=== PATIENT | female | born 1970 | race Caucasian/White ===

== ENCOUNTER 2022-12-26 09:18 | Outpatient (REF) | payer OTHER, SELFPAY ==
--- NOTE | 2022-12-26 10:24 | MHC.AU.HA1 ---
Hearing Aid Evaluation Date of Visit: 12/26/22 Historical Information: Description of Hearing: Asymmetric moderate sloping to profound sensorineural hearing loss with 100% speech understanding for the right ear and 60% for the left ear. Current personal amplification information, if applicable: Oticon left Exceed Power and right Nera BTE with standard half shell molds. Summary: Received Oticon aids through [facility] more than 5 years ago. Stopped using the aids shortly after fitting due to ear pain, left greater than right. Dr. Gracia thinks because of the left ear surgery and shape of jaw with movement. Patient's speech understanding and quality of her own speech has decreased more, particularly after having COVID 3 times. Needs now hearing aids to better facilitate communication. Medical clearance in chart. Hearing Aid Prescription: Based on the individual?s shared listening needs, communication environments, dexterity, desire for connectivity, and personal preferences, the following prescription for amplification has been made: Right ear: Make, Model, Color: Phonak Audeo L 70-R Black Battery Size: Rechargeable Collections Manager/Slim Tube: #2 UP Type of Earmold/Dome/CShell/SlimTip: Phonak Canal Lock C-Shell Left ear:Left ear prescription to be same as Right Hearing Aid above: Make, Model, Color: Phonak Audeo L 70-R Black Battery Size: Rechargeable Collections Manager/Slim Tube: #2 UP Type of Earmold/Dome/CShell/SlimTip: Phonak Canal Lock C-Shell Plan of Care: Patient wishes to purchase hearing aids as prescribed Action Taken/Action Needed:Earmold Impressions Taken, Hearing Instrument Fitting to be scheduled when materials arrive Primary Diagnosis: H90.3 Bilateral Sensorineural Hearing Loss Signature:Provider: Andrew Fonseca, [facility]
== END 2022-12-26 09:19 | disposition home or self-care (01) ==
LOC: HO.HAP 09:18
PROVIDERS: Visit Provider Internal Medicine
DX: Z46.1 Encounter for fitting and adjustment of hearing aid (principal); H90.3 Sensorineural hearing loss, bilateral
CPT/HCPCS: 92591; V5275

== ENCOUNTER 2023-01-16 13:01 | Outpatient (REF) | payer OTHER, SELFPAY ==
--- NOTE | 2023-01-16 14:12 | MHC.AU.HA2 ---
Hearing Instrument Fitting- Adult- Binaural Date of Visit: 01/16/23 Hearing Instruments Dispensed: Right Ear: Wicho, Model, Color, Serial Number: Sarthak Linareso L 70-R Black Serial #[id number] Feather Duster Winder Repair Warranty: 04/02/2026 Feather Duster Winder Loss and Damage Warranty: 04/02/2026 [facility] Service Plan: 01/17/2024 Battery Size: Rechargeable Maitre D/Slim Tube: #2 UP Earmold/Dome/CShell/SlimTip: Phonak Canal Lock C-Shell Serial #[id number] Service Warranty: 04/04/2023 Type of Wax Guard: Cerustop Left Ear: Wicho, Model, Color, Serial Number: Sarthak Linareso L 70-R Black Serial #[id number] Feather Duster Winder Repair Warranty: 04/02/2026 Feather Duster Winder Loss and Damage Warranty: 04/02/2026 [facility] Service Plan: 01/16/2023 Battery Size: Rechargeable Maitre D/Slim Tube: #2 UP Earmold/Dome/CShell/SlimTip: Phonak Canal Lock C-Shell Serial #[id number] Service Warranty: 04/04/2023 Type of Wax Guard: Cerustop Summary of Fitting: Performed feedback mutuel department manager and real ear measurements. Comfortable at real ear settings. Reviewed care, use, and rechargeability, including manually turning on/off, volume control use, and changing wax guard. As a long time hearing aid user, Giovana was adept at insertion/removal and manipulating the hearing aids. Successfully paired to cell phone. [facility] will download the Glowpoint nikhil and connect to the nikhil herself at home. Recommendations: Patient does not feel follow-up is necessary at this time. Recommendations (Other): [facility] will call to schedule an appointment as soon as possible if issues with sound quality, fit, and/or comfort of ear molds arise. Diagnosis Code(s): H90.3 Bilateral Sensorineural Hearing Loss Signature: Provider: Andrew Arreguin, [facility]
== END 2023-01-16 13:02 | disposition home or self-care (01) ==
LOC: HO.HAP 13:01
PROVIDERS: Visit Provider Otolaryngology
DX: Z46.1 Encounter for fitting and adjustment of hearing aid (principal); H90.3 Sensorineural hearing loss, bilateral
CPT/HCPCS: V5011; V5020; V5160; V5261; V5264

== ENCOUNTER 2023-05-08 09:29 | Outpatient (REF) | payer OTHER, SELFPAY | END 2023-05-08 09:30 | disposition home or self-care (01) | LOC: HO.HAP 09:29 | PROVIDERS: Visit Provider Internal Medicine | DX: Z13.89 Encounter for screening for other disorder (principal) ==

== ENCOUNTER 2023-06-19 09:53 | Outpatient (REF) | payer OTHER, SELFPAY | END 2023-06-19 09:54 | disposition home or self-care (01) | LOC: HO.HAP 09:53 | PROVIDERS: Visit Provider Internal Medicine | DX: Z13.89 Encounter for screening for other disorder (principal) ==

== ENCOUNTER 2024-10-16 09:05 | Outpatient (REF) | payer OTHER, SELFPAY ==
--- OUTSIDE RECORDS SUMMARY | 2024-10-16 09:56 | XMS_ITS | Encounter Summary ---
Author Organization [facility] Address [address] [place] [address] Care Team Providers Care Manager Continuous Improvement Name Role Phone Corina Rain MD Primary Care Provider [phone] Reason for Visit * Reason Onset Date Comments [place]: Vaccine 10/07/2024 Encounter Details Date Type Department Care Team (Late st Contact Info) Description 10/07/2024 Telephone Internal Medicine - [place] [address] [place] [phone] Corina Rain MD [address] [place] [phone] [place]: Vaccine Social History Tobacco Use Types Packs/Day Years Used Date Smoking Tobacco: Every Day Cigarettes Smokeless Tobacco: Never Alcohol Use Standard Drinks/Week Comments No 0 (1 standard drink = 0.6 oz pur e alcohol) Housing Instability Answer Date Recorde d Are you worried that in the next 2 months you may not have stable housing? Unable to respond 10/07/2024 Food Access & Nutrition Answer Date Rec orded Do you have access to a vari ety of food including fruits and vegetables? No 10/07/2024 Health Literacy Answer Date Recorded How often do you need to hav e someone help you when you read instructions, pamphlets, or other written material from your doctor or pharmacy? Always 10/07/2024 Caregiver: How often do you need to have someone help you when you read instructions, pamphlets, or other written material from your doctor or pharmacy? Not on file 10/07/2024 Financial Risk Answer Date Recorded How hard is it for you to pa y for the very basics like food, housing, medical care, and air conditioning / heating? Somewhat hard 10/07/2024 Transportation Answer Date Recorded Has the lack of transportati on kept you from meetings, work, or from getting things needed for daily living? No Has the lack of transportati on kept you from medical appointments or from getting medications? No 10/07/2024 Social Isolation Answer Date Recorded How often do you feel lonely or isolated from th ose around you? Always 10/07/2024 Food Risk Answer Date Recorded Within the past 12 months we worried whether our food would run out before we got money to buy more. Sometimes true 025 Within the past 12 months th e food we bought just didn't last and we didn't have money to get more. Sometimes true 10/07/2024 Dependent Care Answer Date Recorded Do you need help finding or paying for care for your loved ones. For example, child care associate or elderly care for an older adult? No 10/07/2024 Education Answer Date Recorded Do you think completing more education or training, like finishing a GED, going to college, or learning a trade, would be helpful for you? N/A 10/07/2024 Employment and Income Answer Date Recor ded During the last four weeks, have you been actively looking for work? No 10/07/2024 Living Situation Answer Date Recorded What is your living situation? 0 10/07/2024 Comments Unknown Sex and Gender Information Value Date Recorded Sex Assigned at Not on file Legal Sex Female 3:01 AM EST Gender Identity Not on file Sexual Orientation Not on file documented as of this encounter Progress Notes * Bernice Portillo - 10/07/2024 3:36 PM EDT helpdesk analyst received request and booked PT for nurses visit tomorrow for prevnar 20 vaccine * Byron Abad MA - 10/07/2024 3:08 PM EDT Pt doesn't have prevnar 20 vaccine on chart. Pt needs appt. * Renetta Rennerlla - 10/07/2024 1:15 PM EDT Patient called and requested a call back to know if she has received a prevnar 20 vaccine and If she has not she would like to schedule a appt to get the vaccine because she needs to schedule her surgery tomorrow for a implant. Please advise Cb# [phone] documented in this encounter Plan of Treatment Upcoming Encounters Date Type Department Care Team (Late st Contact Info) Description 10/16/2024 12:00 PM EDT Consult Internal Medicine - [place] [address] [phone] Corina Rain MD [address] [phone] 10/23/2024 10:00 AM EDT Office Visit Urogynecology [address] [phone] Dorys Ansari MD [address] [place] [address] [address] [place] [address] 11/07/2024 9:30 AM EDT Office Visit Internal Medicine - [place] [address] [phone] Corina Rain MD [address] [phone] documented as of this encounter Visit Diagnoses Not on filedocumented in this encounter Additional Health Concerns Assessment Noted Time PHQ-9 Depression Total Score: 14 025 6:36 PM EDT documented as of this encounter Care Teams Manager Continuous Improvement Relationship Specialty Start Date End Date Corina Rain MD [address] [place] [phone] PCP - General Internal Medicine 03/13/17 documented as of this encounter
--- OUTSIDE RECORDS SUMMARY | 2024-10-16 09:56 | XMS_ITS | Encounter Summary ---
Author Organization [facility] Address [address] [place] [address] Care Team Providers Care Wood Boatbuilder Name Role Phone Corina Rain MD Primary Care Provider [phone] Reason for Visit * Reason Onset Date Comments faxed order 09/30/2024 L&C Encounter Details Date Type Department Care Team (Late st Contact Info) Description 09/30/2024 Telephone Internal Medicine - [place] [address] [place] [phone] Alisia Chaney MA faxed order (L&C) Social History Tobacco Use Types Packs/Day Years Used Date Smoking Tobacco: Every Day Cigarettes Smokeless Tobacco: Never Alcohol Use Standard Drinks/Week Comments No 0 (1 standard drink = 0.6 oz pur e alcohol) Comments Unknown Sex and Gender Information Value Date Recorded Sex Assigned at Not on file Legal Sex Female 3:01 AM EST Gender Identity Not on file Sexual Orientation Not on file documented as of this encounter Progress Notes * Alisia Chaney MA - 10/01/2024 3:29 PM EDT Faxed to L&C [phone] * Alisia Chaney MA - 09/30/2024 3:35 PM EDT [facility] [place] [facility]. Confirmation of order, underpad [id number] Attached office note 05/09/24 Placed in providers folder for signature. documented in this encounter Plan of Treatment Upcoming Encounters Date Type Department Care Team (Late st Contact Info) Description 10/16/2024 12:00 PM EDT Consult Internal Medicine - [place] [address] [facility] [address] [place] [phone] Corina Rain MD [address] [facility] [address] [place] [phone] 10/23/2024 10:00 AM EDT Office Visit Urogynecology [address] [phone] Dorys Ansari MD [address] [facility] [address] [place] [address] 11/07/2024 9:30 AM EDT Office Visit Internal Medicine - [place] [address] [phone] Corina Rain MD [address] [phone] documented as of this encounter Visit Diagnoses Not on filedocumented in this encounter Care Teams Wood Boatbuilder Relationship Specialty Start Date End Date Corina Rain MD [address] [phone] PCP - General Internal Medicine 03/13/17 documented as of this encounter
--- OUTSIDE RECORDS SUMMARY | 2024-10-16 09:56 | XMS_ITS | Encounter Summary ---
Author Organization [facility] Address [id number] [place] [phone] Care Team Providers Care Product Director Name Role Phone Corina Rain MD Primary Care Provider [phone] Reason for Visit * Reason Onset Date Comments DME more info needed 08/09/2024 faxed order 08/09/2024 L&C Encounter Details Date Type Department Care Team (Late st Contact Info) Description 08/09/2024 Telephone Internal Medicine - [place] [address] [phone] Corina Rain MD [address] [phone] DME more info needed; faxed order (L&C) Social History Tobacco Use [...] Progress Notes * Alisia Chaney MA - 09/18/2024 1:01 PM EST Patient is all set. Faxed to L&C [phone] * Corina Rain MD - 09/12/2024 7:28 PM EST All set?? * Alisia Chaney MA - 09/12/2024 3:59 PM EST Letter Placed in providers folder for signature. * Alisia Chaney MA - 09/11/2024 12:51 PM EST [facility] confirmation order [id number] disposable underpads , the supplier is requesting an addendum note stating the benefit and need for disposable underpads for the bed. Placed in providers folder for signature. * Alisia Chaney MA - 08/13/2024 10:07 AM EST Faxed to L&C [phone] * Alisia Chaney MA - 08/09/2024 1:38 PM EST New rx pended. * Renetta Araujo - 08/09/2024 1:29 PM EST Patient called and stated that she has been waiting for the bed pads since her last appt because the pharmacy [facility] needs more information on why the patient needs the supplies. (See encounter from 05/23/24) Please advise Cb# [phone] documented in this encounter Plan of Treatment Upcoming Encounters Date Type Department Care Team (Late st Contact Info) Description 10/16/2024 12:00 PM EDT Consult Internal Medicine - [place] [address] [phone] Corina Rain MD [address] [phone] 10/23/2024 10:00 AM EDT Office Visit [facility]necology [facility] [address] [place] [address] Dorys Ansari MD [address] [facility] [address] [place] [address] 11/07/2024 9:30 AM EDT Office Visit Internal Medicine - [place] [address] [phone] Corina Rain MD [address] [phone] documented as of this encounter Visit Diagnoses Diagnosis Urinary incontinence, unspecified type- Primary documented in this encounter Orders General Supply Count Last Ordered Date First Or dered Date DISPOSABLE UNDERPADS (CHUX) 1 08/10/2024 documented in this encounter Care Teams Product Director Relationship Specialty Start Date End Date Corina Rain MD [address] [phone] PCP - General Internal Medicine 03/13/17 documented as of this encounter
--- OUTSIDE RECORDS SUMMARY | 2024-10-16 09:56 | XMS_ITS | Clinical Summary ---
Author Organization [facility] Address [address] [place] [address] Phone Care Team Providers Care General Manager [employer] Name Role Phone Corina Rain MD Primary Care Provider [phone] Allergies Active Allergy Reactions Criticality Noted Date Comments Acetaminophen-Codeine 05/04/2012 Other Reaction(s): OTHER Stomach upset Ibuprofen 05/04/2012 Other Reaction(s): OTHER Stomach upset Medications albuterol 2.5 mg /3 mL (0.083 %) nebulizer solution INHALE 1 VIAL VIA NEBULIZATION EVERY 4 HOURS NEEDED FOR WHEEZING 12/31/19 23 Active albuterol HFA (PROAIR HFA ; PROVENTIL HFA ; VENTOLIN HFA) 90 mcg/actuation inhaler INHALE 2 PUFFS BY MOUTH EVERY 4 HOURS NEEDED FOR WHEEZING/SHORTN ESS OF BREATH 12/23/19 21 Active cholecalcifero l (VITAMIN D-3) 50 mcg (2,000 unit) tablet Take 1 tablet (2,000 Units total) by mouth 1 (one) time each day. 04/25/20 24 Active estradioL (CLIMARA) 0.05 mg/[address] 1 Patch onto the skin once a week. Active FLUoxetine (PROzac) 10 mg capsule Take 1 Capsule by mouth daily for 30 days. 02/01/20 24 Active fluticasone-sa lmeterol (ADVAIR DISKUS) 250-50 mcg/dose diskus inhaler Inhale 1 Puff into the lungs 2 times daily for 30 days. 01/15/20 24 Active hydrOXYzine HCL (ATARAX) 50 mg tablet 08/18/19 Active underpads pad 1 Each by Does not apply route daily. 05/24/20 24 Active INCONTINENCE PAD, LINER, DISP MISC 1 Each by Does not apply route daily. 05/09/20 24 Active LORazepam (ATIVAN) 0.5 mg tablet Take 1 Tab by mouth 2 times daily. Active meclizine (ANTIVERT) 12.5 mg tablet Take 1 tablet (12.5 mg total) by mouth 2 (two) times a day. 01/04/20 23 Active meloxicam (MOBIC) 7.5 mg tablet Take 1 Tablet by mouth 2 times daily as needed for Pain for up to 10 days. 12/28/19 23 Active mirtazapine (REMERON) 7.5 mg tablet 08/18/19 Active UNABLE TO FIND Devices ([employer] Pulse Oximeter) Misc 07/27/19 22 Active zolpidem (AMBIEN) 10 mg tablet Take by mouth at bedtime as needed. Active atorvastatin (LIPITOR) 40 mg tablet TAKE 1 TABLET BY MOUTH EVERY DAY 90 tablet 1 06/17/20 24 Active omeprazole (PriLOSEC) [address] capsule Take 1 capsule (20 mg total) by mouth 1 (one) time each day. 90 capsule 1 08/26/19 25 Active cyanocobalamin (VITAMIN B-12) 1,000 mcg tablet TAKE 1 TABLET BY MOUTH EVERY DAY 90 tablet 1 08/30/19 25 Active fluticasone propionate (FLONASE) 50 mcg/actuation nasal spray SPRAY 2 SPRAYS BY NASAL ROUTE DAILY 12/02/19 23 025 Discontinued Active Problems Problem Noted Date Diagnosed Date Urinary incontinence 05/09/2024 Gastroesophageal reflux disease with esophagitis 01/09/2020 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 Fatty liver 02/28/2018 Hyperlipidemia 12/08/2017 Anxiety 07/07/2017 Hiatal hernia with GERD and esophagitis 06/21/20 17 Insomnia 06/21/2017 Vitamin D deficiency 06/21/2017 Arthritis 03/07/2017 Osteoarthritis 08/15/2012 Overview (06/09/2024): Lumbosacral Spine Asthma 05/04/2012 Overview (06/09/2024): The patient follows with orthophoto tech/draftsman and [facility] Depression 05/04/2012 Overview (06/09/2024): Bipolar? And the patient follow with psychiatric provider (Dr Arreaga) and she has counselor at the [facility]. JEFFREY (obstructive sleep apnea) 05/04/2012 Overview (06/09/2024): The patient does not use CPAP Encounters Date Type Department Care Team Description 10/10/2024 9:15 AM EDT Office Visit Internal Medicine [address] [phone] Corina Rain MD Need for vaccination against Streptococcus pneumoniae (Primary Dx) 10/08/2024 Telephone Internal Medicine [address] [phone] Corina Rain MD Pre-op Exam 10/07/2024 Telephone Internal Medicine [address] [phone] Corina Rain MD [place]: Vaccine 09/30/2024 Telephone Internal [address] [phone] Alisia Chaney MA faxed order (L&C) 08/09/2024 [facility] [address] [phone] Corina Rain MD DME more info needed; faxed order (L&C) from Last 3 Months Immunizations Name Administration Dates Next Due Moderna SARS-CoV-2 COVID-19, mRNA, LNP-S, preservative free 06/16/2021,12/04/2020,11/06/2020 Pneumococcal conjugate 20 va lent (Prevnar 20, PCV 20) 2mo and older 10/10/2024 Tdap Tetanus diptheria acell ular pertussis (Boostrix; Adacel) 7yo and older 05/04/2012 Surgical History Surgery Date Site/Laterality Comments HYSTERECTOMY PROCEDURE: HISTORICAL HYSTERECTOMY CHOLECYSTECTOMY PROCEDURE: HISTORICAL CHOLECYSTECTOMY APPENDECTOMY PROCEDURE: HISTORICAL APPENDECTOMY OTHER SURGICAL HISTORY Left PROCEDURE: HISTORICAL EAR SURGERY; COMMENT: Repair of TM, Myringoplasty OTHER SURGICAL HISTORY PROCEDURE: HISTORY OTHER; COMMENT: breast biopsy UPPER GASTROINTESTINAL ENDOSCOPY PROCEDURE: MI UPPER GI ENDOSCOPY PERFORMED; COMMENT: duodenal erosions without bleeding Medical History Medical History Date Comments GERD (gastroesophageal reflux disease) 7 DX:GERD (gastroesophageal reflux disease) Vitamin D deficiency 06/21/2017 DX:Vitamin D deficiency Insomnia 06/21/2017 DX:Insomnia Anxiety 07/07/2017 DX:Anxiety Arthritis 03/07/2017 DX:Arthritis Asthma 05/04/2012 DX:Asthma; COMME NT: The patient follows with orthophoto tech/draftsman and [facility] Depression 05/04/2012 DX:Depression; C OMMENT: Bipolar? And the patient follow with psychiatric provider (Dr Arreaga) and she has counselor [facility]. 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 DX:Erosion o f duodenum Fatty liver 02/28/2018 DX:Fatty liver Hyperlipidemia 12/08/2017 DX:Hyperlipidemi a JEFFREY (obstructive sleep apnea) 05/04/2012 DX :JEFFREY (obstructive sleep apnea); COMMENT: The patient does not use CPAP Tobacco use 05/04/2012 DX:Tobacco use Osteoarthritis 08/15/2012 DX:Osteoarthriti s; COMMENT: Lumbosacral Spine Family History Medical History Relation Name Comments Diabetes Brother Diabetes Father CKD, CAD, Hyper tension, Diabetes Mother Heart failure Mother Relation Name Status Comments Brother Alive DM Daughter 1 Alive Hearing loss Daughter 2 Alive Father CAD, DM, HTN, E SRD Mother amyloidosis, ES RD, anemia Sister Alive DM Son 1 Alive Hearing loss Son 2 Alive Son 3 Alive Social History Tobacco Use Types Packs/Day Years [...] care for your loved ones. For example, director maternal child or elderly care for an older adult? [...] on file Sexual Orientation Not on file Obstetrics History Last Filed Vital Signs Vital Sign Reading Time Taken Comments Blood Pressure 132/80 05/09/2024 9:28 AM EDT Pulse 70 05/09/2024 9:28 AM EDT Temperature - - Respiratory Rate - - Oxygen Saturation - - Inhaled Oxygen Concentration - - Weight 81.7 kg (180 lb 3.2 oz) 05/09/2024 9:28 A M EDT Height 157.5 cm (5' 2 ) 05/09/2024 9:28 AM EDT Body Mass Index 32.96 05/09/2024 9:28 AM EDT Plan of Treatment Upcoming Encounters Date Type Department Care Team (Late st Contact Info) Description 10/16/2024 12:00 PM EDT Consult Internal Medicine - [place] [facility] [address] [facility] [address] [place] [phone] Corina Rain MD 175 [facility] [address] [place] [phone] 10/23/2024 10:00 AM EDT Office Visit Urogynecology [facility] [address] [place] [phone] Dorys Ansari MD [address] [facility] [address] [place] [address] 11/07/2024 9:30 AM EDT Office Visit Internal Medicine - [facility] [address] [phone] Corina Rain MD [address] [phone] Health Maintenance Due Date Last Done Comments Hepatitis B Vaccines (1 of 3 - 19+ 3-dose series) 1988 Zoster Vaccines (1 of 2) 1988 Cervical Cancer Screening: Pap Smear 1990 DTaP,Tdap,and Td Vaccines (2 - Td or Tdap) 05/04/2022 05/04/2012 HIV Screening 07/02/2022 Hepatitis C Screening 07/02/2022 COVID-19 Vaccine ( season) 2024 06/04/2023, 06/22/2022, 06/16/2021, Additional history exists Influenza Vaccine (#1) 2024 Depression Screening 10/07/2025 10/07/2024, 02/01/20 24 Social Influencers of Health Screening 10/07/2025 10/07/2024 Breast Cancer Screening 04/15/2026 04/15/20 24, 03/17/2023, 03/15/2022, Additional history exists Cholesterol Screening (Lipid Panel) 11/07/2028 11/08/2023 Colorectal Cancer Screening: Colonoscopy 09/02/2029 09/02/2019 Pneumococcal Vaccine: 50+ Years Completed 10/10/2024 Pneumococcal Vaccine: Pediatrics (0 to 5 Years) and At-Risk Patients (6 to 64 Years) Completed 10/10/2024 HIB Vaccines Aged Out No longer eligi ble based on patient's age to complete this topic HPV Vaccines Aged Out No longer eligi ble based on patient's age to complete this topic Hepatitis A Vaccines Aged Out No long er eligible based on patient's age to complete this topic IPV Vaccines Aged Out No longer eligi ble based on patient's age to complete this topic MMR Vaccines Aged Out No longer eligi ble based on patient's age to complete this topic Meningococcal ACWY Vaccine Aged Out N o longer eligible based on patient's age to complete this topic Meningococcal B Vacine Aged Out No lo nger eligible based on patient's age to complete this topic RSV Immunization Patients Under 20 months Aged Out No longer eligible based on patient's age to complete this topic Varicella Vaccines Aged Out No longer eligible based on patient's age to complete this topic Procedures Procedure Name Priority Date/Time Associated Diagnosis Comments REJI SCREENING DIGITAL Routine 04/15/2024 10:03 AM EDT Encounter for screening mammogram for malignant neoplasm of breast DEPRESSION SCREENING Routine 02/01/2024 LIPID PANEL Routine 11/08/2023 COLONOSCOPY Routine 09/02/2019 from Last 3 Months or Most Recently Relevant to Health Maintenance Results * REJI SCREENING DIGITAL (04/15/2024 10:03 AM EDT) Anatomical Region Laterality Modality Mammography 04/11/2024 1:26 PM EDT Narrative 04/15/2024 10:03 AM [facility] Diagnostic Imaging Department [address] [place] [id number] Patient: ??GIOVANA GARZA I ?/Age/Sex: 1970 - 53 - F Unit#: ??[id number] ? Location/Status: ??SPDIMAM/REG CLI ? Mnemonic/Ordering Site: ??DIGSC/SPMAM Ordering Physician: ??CORINA RAIN MD Reji Screening Digital - 04/13/24 - 1018 Report Status:Signed EXAM: Reji Screening Digital EXAM DATE AND TIME: 04/13/2024 10:19 AM HISTORY: ??Screening. Left breast biopsy in 2009, pathology benign. COMPARISON: ??03/21/23, 03/17/23, 03/15/22, 03/13/21 TECHNIQUE: Bilateral digital breast tomosynthesis was performed in the CC and MLO projections. Computer aided detection with [employer] 3D 3.1 was employed. TISSUE DENSITY: c. The breasts are heterogeneously dense, which may obscure small masses. FINDINGS: A 9 mm nodule with partly obscured margins is seen in the 9-10:00 retroareolar area of the right breast. Targeted ultrasound is recommended for further assessment. No suspicious grouped microcalcifications or areas of architectural distortion are seen. A biopsy marker is again seen in the medial left breast. Multiple skin calcifications are present. The vascularity is unremarkable. IMPRESSION: 1. 9 mm right breast nodule, for which targeted ultrasound is recommended. The patient will be called back. 2. Stable mammographic appearance of the left breast. No evidence of malignancy is seen. BI-RADS: ??Category 0: Incomplete - Need Additional Imaging Evaluation RECOMMENDATION(S): 1: Ultrasound follow-up RIGHT [facility]amm[facility] performed at [facility] [address] [place] [address] Dictating Physician: ??SLIME MEZA MD Electronically Signed by: ??SLIME MEZA MD Dic Date/Time: ??04/15/24 1001 Sign date/Time: ??04/15/24 1003 Procedure Note Slime Meza MD - 05/08/2024 [facility] Diagnostic Imaging Department [address] [place] [address] Patient: GIOVANA GARZA I /Age/Sex: 1970 - 53 - F Unit#: [id number] Location/Status: [facility] CLI Mnemonic/Ordering Site: [facility] Ordering Physician: CORINA RAIN MD [facility] Screening Digital - 04/13/24 - 1018 Report Status:Signed EXAM: [facility] Screening Digital EXAM DATE AND TIME: 04/13/2024 10:19 AM HISTORY: Screening. Left breast biopsy in 2009, pathology benign. COMPARISON: 03/21/23, 03/17/23, 03/15/22, 03/13/21 TECHNIQUE: Bilateral digital breast tomosynthesis was performed in the CCand MLO projections. Computer aided detection with [employer] 3D 3.1was employed. TISSUE DENSITY: c. The breasts are heterogeneously dense, which mayobscure small masses. FINDINGS: A 9 mm nodule with partly obscured margins is seen in the 9-10:00retroareolar area of the right breast. Targeted ultrasound is recommended for further assessment. No suspicious grouped microcalcifications or areas of architecturaldistortion are seen. A biopsy marker is again seen in the medial left breast.Multiple skin calcifications are present. The vascularity is unremarkable. IMPRESSION: 1. 9 mm right breast nodule, for which targeted ultrasound is recommended.The patient will be called back. 2. Stable mammographic appearance of the left breast. No evidence ofmalignancy is seen. BI-RADS: Category 0: Incomplete - Need Additional Imaging Evaluation RECOMMENDATION(S): 1: Ultrasound follow-up RIGHT Mammogram performed at [place] [address] Dictating Physician: SLIME MEZA MD Electronically Signed by: SLIME MEZA MD Dic Date/Time: 04/15/24 1001 Sign date/Time: 04/15/24 1003 Corina Rain MD IMG BI PROCEDURES Final Result * Depression Screening (02/01/2024) Pathologist [facility] Depression Screening ABSTRACTED Historical Provider HEALTH MAINTENANCE Final Result * Lipid panel (11/08/2023) [facility] LDL/HDL Ratio 3 0 - 4 Triglycerides 99 0 - 150 mg/dL Cholesterol 118 0 - 200 mg/dL HDL 43 >=40 mg/dL LDL Cholesterol 56 0 - 100 mg/dL Blood Venous blood specimen / Unknown Historical Provider LAB BLOOD ORDERABLES Dianne l Result * Colonoscopy (09/02/2019) Pathologist [facility] Colonoscopy NO INTERPRETATION , ABSTRACTED Anatomical Region Laterality Modality Other us Historical Provider HEALTH MAINTENANCE Final Result from Last 3 Months or Most Recently Relevant to Health Maintenance Insurance [facility] [employer] [facility] Care Teams General Manager [employer] Relationship Specialty Start Date End Date Corina Rain MD [address] [phone] PCP - General Internal Medicine 03/13/17
--- OUTSIDE RECORDS SUMMARY | 2024-10-16 09:56 | XMS_ITS | Encounter Summary ---
Author Organization [facility] Address [address] [place] [address] Care Team Providers Care Icu Specialist Name Role Phone Corina Rain MD Primary Care Provider [phone] Reason for Visit * Reason Comments Immunizations Prevnar 20 Encounter Details Date Type Department Care Team (Latest Contact Info) Description 10/10/2024 9:15 AM EDT Office Visit Internal Medicine - [place] [address] [facility] [address] [phone] Corina Rain MD [address] [phone] Need for vaccination against Streptococcus pneumoniae (Primary Dx) Social History Tobacco Use Types Packs/Day Years [...] your loved ones. For example, child care assistant or elderly care for an older adult? [...] as of this encounter Progress Notes * Martha Duong - 10/10/2024 9:15 AM EDT Nurse visit for Prevnar 20. Patient tolerated it well. documented in this encounter Plan of Treatment Upcoming Encounters Date Type Department Care Team (Late st Contact Info) Description 10/16/2024 12:00 PM EDT Consult Internal Medicine - [address] [place] [phone] Corina Rain MD 175 [facility] [address] [place] [address] 10/23/2024 10:00 AM EDT Office Visit Urogynecology - [place] [address] [place] [address] Dorys Ansari MD 580 [facility] [address] [place] [address] 11/07/2024 9:30 AM EDT Office Visit Internal Medicine - [place] 175 [facility] [address] [place] [phone] Corina Rain MD [address] [phone] documented as of this encounter Visit Diagnoses Diagnosis Need for vaccination against Streptococcus pneumoniae- Primary documented in this encounter Discontinued Medications Medication Sig Discontinue Reason Start Date End Da te fluticasone propionate (FLONASE) 50 mcg/actuation nasal spray SPRAY 2 SPRAYS BY NASAL ROUTE DAILY 12/01/2022 10/15/2024 documented as of this encounter Orders Immunization/Injection Count Last Ordered Date First Ordered Date PNEUMOCOCCAL CONJUGATE 20 VA LENT (PREVNAR 20, PCV 20) 2MO AND OLDER 1 10/10/2024 documented in this encounter Additional Health Concerns Assessment Noted Time PHQ-9 Depression Total Score: 14 025 6:36 PM EDT documented as of this encounter Care Teams Icu Specialist Relationship Specialty Start Date End Date Corina Rain MD [address] [phone] PCP - General Internal Medicine 03/13/17 documented as of this encounter
--- OUTSIDE RECORDS SUMMARY | 2024-10-16 09:56 | XMS_ITS | Encounter Summary ---
Author Organization [facility] Address [address] [place] [address] Care Team Providers Care Web Marketing Strategist Name Role Phone Corina Rain MD Primary Care Provider [phone] Reason for Visit * Reason Onset Date Comments Pre-op Exam 10/08/2024 Encounter Details Date Type Department Care Team (Late st Contact Info) Description 10/08/2024 Telephone Internal Medicine - [place] [address] [facility] [address] [place] [phone] Corina Rain MD [address] [facility] [address] [facility] [address] [place] [phone] Pre-op Exam Social History Tobacco Use Types Packs/Day Years [...] care for your loved ones. For example, early childhood or elderly care for an older adult? [...] as of this encounter Progress Notes * Erika Lo - 10/10/2024 1:44 PM EDT ENT called again regarding message below to schedule pre-op appt for patient. Please call [phone]. * Rehana Newman - 10/08/2024 9:29 AM EDT .Pre op needed for patient Date of surgery 10-25-2024 Procedure ; COCHLEAR IMPLANTS [facility] Contact with appt [facility] [phone] Direct Line /Maritza EKG lab metabolic panel and CBC documented in this encounter Plan of Treatment Upcoming Encounters Date Type Department Care Team (Late st Contact Info) Description 10/16/2024 12:00 PM EDT Consult Internal Medicine - [place] [address] [facility] [address] [place] [phone] Corina Rain MD 175 [facility] [address] [place] [phone] 10/23/2024 10:00 AM EDT Office Visit Urogynecology [facility] [address] [place] [address] Dorys Ansari MD [address] [place] [address] [address] [place] [address] 11/07/2024 9:30 AM EDT Office Visit Internal Medicine - [place] [address] [facility] [address] [phone] Corina Rain MD [address] [phone] documented as of this encounter Visit Diagnoses Not on filedocumented in this encounter Additional Health Concerns Assessment Noted Time PHQ-9 Depression Total Score: 14 025 6:36 PM EDT documented as of this encounter Care Teams Web Marketing Strategist Relationship Specialty Start Date End Date Corina Rain MD [address] [phone] PCP - General Internal Medicine 03/13/17 documented as of this encounter
--- OUTSIDE RECORDS SUMMARY | 2024-10-16 09:56 | XMS_ITS | Continuity of Care Document ---
Author Organization [place] - [facility], [facility] Address [address] [place] [address] Care Team Providers Care Dental Service Technician Name Role Phone PAULFREDDYA Primary Care Provider Assessment No assessment recorded. Plan of Treatment Reminders Order Date Submit Date Provider Last Modified By Organization Details Last Modified Time Details Appointments SURGERY 120 2024 12:30P M KENNETH MURPHY MD Not available Not available Not available Post Op 2024 02:15P M KAREN HANSON PA-C Not available Not available Not available Post Op 2024 03:30P M KENNETH MURPHY MD Not available Not available Not available Lab None recorded. Referral None recorded. Procedures None recorded. Surgeries cochlear device implantat ion (SURG) 2024 025 Not available 10/07/2024 13:29:15 Imaging None recorded. Medication Orders None recorded. Patient TargetsNo targets recorded. Patient InstructionsNo instructions recorded. Reason for Referral None Reported. Results Created Date Observation Date Name Description Value Unit Range Abnormal Flag Note LastModifiedBy Organization Detail LastModifiedTime 10/08/1910/07/2024 CT, tempo ral bone, w/o contr ast No observ ation record ed. [email or web address] [facility] [address] [facility] [address], [place], [address], 10/08/2024 15:01:57 Result Notes None recorded. Problems Name Problem SNOMED Code Status Onset Date Resolution Date Notes Provider Name and Address Organization Details Recorded Time Otorrhea of left ear 03532551245 05340 Active 2017 Otorrhea , left ear; Note: Date Diagnose d: 12/26/2017 10:52 AM (H92.12) Not Available [facility] 4 03:14:57 Pain of left temporom andibula r joint [id number] 475873 Active 2016 Arthralg ia of left temporom andibula r joint; Note: Date Diagnose d: 7 11:59 AM (M26.622 ) [facility] 4 03:14:57 Sensorin eural hearing loss of bilatera l ears 504824238 Active 2022 Sensorin eural hearing loss, bilatera l; Note: Date Diagnose d: 3 3:19 PM (H90.3) Not Available [facility] 4 03:14:58 Tobacco user 328499304 Active 2017 Tobacco use; Note: Date Diagnose d: 12/26/2017 10:57 AM (Z72.0) Not Available [facility] 4 03:14:57 Mixed conducti ve and sensorin eural hearing loss of left ear 98984886165 107 Active 2016 Mixed conducti ve and sensorin eural hearing loss, unilater al, left ear with restrict ed hearing on the contrala teral side; Note: Date Diagnose d: 7 11:21 AM (H90.A32 ) Not Available [facility] 4 03:14:57 Sensorin eural hearing loss in right ear 89505529692 100 Active 2016 Sensorin eural hearing loss, unilater al, right ear, with restrict ed hearing on the contrala teral side; Note: Date Diagnose d: 7 11:21 AM (H90.A21 ) Not Available [facility] 4 03:14:58 Marginal perforat ion of tympanic membrane 86417168 Completed 201702/23/2024 Other marginal perforat ions of tympanic membrane , left ear; Note: Date Diagnose d: 12/26/2017 10:51 AM (H72.2X2 ) Not Available [facility] 4 03:14:57 Impacted cerumen in left ear 11034641147 92847 Active 2024 JANY SHIN PA-C [address] [place] [address],[address], [address] , [facility] - [facility] 5 11:01:40 Problem Notes None recorded. Procedures Surgical History Date Name Laterality Status Provider Name and Address Organization Details Recorded Time 10/08/[address] temporal bones - Xoran completed KENNETH MURPHY MD [address] [place] [address],[address], [address], [facility] - [facility] 10/07/2024 10:55:44 08/02/19 25 Cerumen removal without microscope left completed JANY SHIN PA-C [address] [place] [address],[address], [address], [facility] - [facility] 08/02/2024 10:56:26 08/02/19 25 Air & Speech Audio with Tymps (85781, 55248 & 62972) completed SUMAN LANCASTER [address] [facility],[address], [address], [place] - [facility] 08/02/2024 10:31:18 Appendectomy completed Evelin Michael [place] - [facility] 08/02/2024 10:01:40 cholecystectomy completed Evelin Michael [facility] 08/02/2024 10:01:45 Hysterectomy completed Evelin Michael [facility] 08/02/2024 10:01:54 biopsy of breast completed Evelin Michael [place] - [facility] 08/02/2024 10:02:05 Ear Surgery completed Evelin Michael [place] - [facility] 08/02/2024 10:02:11 Imaging Results None recorded. Procedure Notes None recorded. Medical Equipment None Reported. Allergies Allergen ID Allergen Name Allergen Category Reaction Reaction Severity Criticality Documentation Date Start Date Code Code System Note Provider Name and Address Organization Details Recorded Time 761818 Tylenol with Codeine medicatio n other Not available Not available 12/05/2023 89520 6 RxNorm React ion: unkno wn, unspe cifie d;; Not Available [facility] 4 01:23:04 865948 ibuprofen , sodium salt medicatio n other Not available Not available 12/05/2023 89672 44 RxNorm React ion: isaura hunter, domitila laboy d;; Not Available [facility] 4 01:23:05 Medications Name Sig Start Date Stop Date Status Note LastModified by Organization Details LastModified Time atorvasta tin 40 mg tablet TAKE 1 TABLET BY MOUTH EVERY DAY active Not Available Not Available No t Available albuterol sulfate 2.5 mg/3 mL (0.083 %) solution for nebulizat ion 10/07 completed Medicati on ID: [id number] B rand Name: albutero l sulfate Send Method: E-Prescr ibed Sub s Allowed: subs OK Medic ationGen ericName : albutero l sulfate Not Available Not Available Not Available tolterodi ne ER 4 mg capsule,e xtended release 24 hr TAKE 1 CAPSULE BY MOUTH EVERY DAY active Not Available Not Available No t Available sertralin e 100 mg tablet TAKE 1 TABLET BY MOUTH EVERY DAY WITH MEALS 08/02 completed Not Available Not Available Not Available cyanocoba rafael (vit B-12) 1,000 mcg tablet TAKE 1 TABLET BY MOUTH EVERY DAY active Not Available Not Available No t Available hydroxyzi ne HCl 50 mg tablet TAKE 1 TABLET BY MOUTH TWICE A DAY NEEDED active Not Available Not Available No t Available lorazepam 0.5 mg tablet TAKE 1 TABLET BY MOUTH EVERY DAY NEEDED active Not Available Not Available No t Available fluoxetin e 10 mg capsule TAKE 1 CAPSULE BY MOUTH EVERY DAY 10/07 completed Not Available Not Available Not Available sertralin e 25 mg tablet TAKE 1 TABLET BY MOUTH EVERY DAY WITH MEALS 10/07 completed Not Available Not Available Not Available omeprazol e 20 mg capsule,d elayed release TAKE 1 CAPSULE BY MOUTH 1 TIME EACH DAY. active Not Available Not Available No t Available monteluka st 10 mg tablet TAKE 1 TABLET BY MOUTH AT BEDTIME FOR 360 DAYS. 08/02 completed Not Available Not Available Not Available zolpidem 5 mg tablet TAKE 1 TABLET BY MOUTH EVERY NIGHT AT BEDTIME NEEDED active Not Available Not Available No t Available mirtazapi ne 15 mg tablet TAKE 1-2 TABLET BY MOUTH EVERY NIGHT AT BEDTIME active Not Available Not Available No t Available estradiol 0.5 mg tablet 08/02 completed Medicati on ID: [id number] B rand Name: estradio l Send Method: E-Prescr ibed Sub s Allowed: subs OK Medic ationGen ericName : estradio l Not Available Not Available Not Available zolpidem 10 mg tablet TAKE 1 TABLET BY MOUTH AT BEDTIME 08/02 completed Not Available Not Available Not Available fluoxetin e 20 mg capsule TAKE 1 CAPSULE BY MOUTH EVERY DAY active Not Available Not Available No t Available fluticaso ne propionat e 50 mcg/actua tion nasal spray,france pension 10/07 completed Medicati on ID: [id number] B rand Name: fluticas one propiona te Send Method: E-Prescr ibed Sub s Allowed: subs OK Medic ationGen ericName : fluticas one propiona te Not Available Not Available Not Available sertralin e 50 mg tablet TAKE 1 1/2 TABLET BY MOUTH ONCE A DAY WITH MEALS 08/02 completed Not Available Not Available Not Available mirtazapi ne 7.5 mg tablet 08/02 completed Medicati on ID: [id number] B rand Name: mirtazap ine Send Method: E-Prescr ibed Sub s Allowed: subs OK Medic ationGen ericName : mirtazap ine Not Available Not Available Not Available Ranitidin e Hcl 11/03 completed Medicati on ID: [id number] D uration Value: 30 Brand Name: ranitidi ne hcl Send Method: E-Prescr ibed Sub s Allowed: subs OK Medic ationGen ericName : ranitidi ne hcl Not Available Not Available Not Available Vitamin D3 50 mcg (2,000 unit) tablet TAKE 1 TABLET BY MOUTH EVERY DAY active Not Available Not Available No t Available Vitals None Recorded Social History None recorded. Functional Status None recorded. Mental Status None recorded. Family History Nothing Reported. Medical History Condition Response Allergies/Hayfever Y Heart Problems N Anxiety Y Tonsil Infections N Emphysema N Migraines N Thyroid Problems N Glaucoma N Depression Y COPD N Developmental Delay Y Nasal or Sinus Problems N Anemia N Immune System Disorder N Anesthesia Complications N Heart Attack ([place]) N Other Skin Condition N Diabetes N Rhinitis N Bleeding Disorder N Food Allergy N Arthritis Y Hearing Loss Y Hyperlipidemia N Cancer N Stroke N Dementia N Nasal polyps N Asthma Y Sleep Disorder Y GERD/Reflux Y High Cholesterol Y Liver Disease N Headaches N Fibromyalgia N Hypertension N Speech Delay Y Kidney Disease N Gynecological HistoryNo gynecological history recorded. Obstetrics History GPAL:G 0 P 0 0 0 0 Past Encounters Encounter ID Performer Location Encounter Start Date Encounter Closed Date Diagnosis/Indication Diagnosis SNOMED-CT Code Diagnosis ICD10 Code Diagnosis Note [id number] KENNETH MURPHY MD [facility] [address] [address] 10/07/2024 09:29:09 10/07/2024 11:40:01 Sensorineural hearing loss of bilateral ears [id number] H90.3 Patient with familial, early onset sensorineu ral hearing loss. Recent audiometri c testing shows bilateral severe to profound sensorineu ral hearing loss with poor speech discrimina tion. She has undergone formal audiologic cochlear implant evaluation which I reviewed with the patient and her daughter today. CT scan of the temporal bones shows no anatomic contraindi cation to cochlear mentation in either ear. The patient has been found to meet the anatomic and audiologic candidacy criteria for cochlear implantati on in {{the right ear the left ear both ears*}}. Today we discussed the risks, benefits, and complicati ons associated with cochlear implantati on, including the risks of bleeding, infection, CSF leak, temporary or permanent facial nerve paralysis or paresis, delayed facial paresis, long-term risk of meningitis , and risk for device failure or need for device removal or replacemen t. We discussed the importance of keeping up-to-date Prevnar 20 vaccine to reduce the long-term risk of meningitis . After full discussion , the patient would like to go ahead and proceed with implantati on. We will be implanting the {{right le ft*}} ear with the {{Cochlear Corporatio n CI 632* Cochl ear Corporatio n CI 622 Cochle ar Corporatio n CI 612}}impla nt. After full discussion , the patient would like to proceed with surgery. I have provided patient with the contact informatio n for my advertising clerk. We will begin the scheduling process and see the patient back at the time of surgery. Patient {{will* wi ll not}} require medical clearance from their primary care provider preoper[facility]ura [place].Estela victoria's daughter has already set her up for an online visit with Darlyn Thomson from [employer] to discuss accessory choices. Family his tory of hearing loss [id number] Z82.2 Health Concerns Section Related Observation LastModified by Organization Detai ls LastModified Time None Recorded Concern Status LastModified by Organization Details LastModified Time None Recorded Payers Encounter Date Sequence Insurance Name Policy Number Policy [place] Covered Member ID [place] Member ID Guarantor Name 10/07/2024 1 [facility] - HEALTH NET PLAN (MEDICAID HMO) CARLYN Giovana Sun [id number] Giovana Lara Notes Date Note Type Note Provider Name and Address Organization Details Recorded Time 10/07/2024 text/html 54-year-old ashley westbrook comes in for evaluation for possible cochlear implant. She has childhood onset sensorineural hearing loss and wore hearing aids as a young child, but stopped using amplification during her teenage years. She began using amplification about 5 years ago, dispensed at [facility] audiology. Currently receiving limited benefit from conventional amplification. She underwent cochlear implant evaluation with Regla Austin at the [facility] and was found to meet audiologic candidacy criteria for cochlear implantation in both ears. Patient has expressed interest in implantation of the left ear.Patient has strong family history of childhood onset sensorineural hearing loss. Her son has bilateral cochlear implants, and her grandson has 1 cochlear implant both done by me. Patient comes in today accompanied by her daughter who has normal hearing. KENNETH MURPHY MD [address] [place] [address], [place], [address], [facility] - [facility] 10/07/2024 11:38:43 OBGyn Episode No OBEpisode recorded.
== END 2024-10-16 09:06 | disposition home or self-care (01) ==
LOC: HO.HAP 09:05
PROVIDERS: Visit Provider Internal Medicine
DX: Z46.1 Encounter for fitting and adjustment of hearing aid (principal); H90.3 Sensorineural hearing loss, bilateral
CPT/HCPCS: 92593; 99499

== ENCOUNTER 2024-10-30 10:52 | Outpatient (REF) | payer OTHER, SELFPAY ==
--- OUTSIDE RECORDS SUMMARY | 2024-10-30 12:41 | XMS_ITS | Clinical Summary ---
Author Organization [facility] Address [address] [place] [address] Phone Care Team Providers Care Measurement And Verification Engineer Name Role Phone Sriram Rain MD Primary Care Provider [phone] Allergies Active Allergy Reactions Criticality Noted Date [...] 05/04/2012 Overview (06/09/2024): The patient follows with research recruiter and [facility] Depression 05/04/2012 Overview (06/09/2024): Bipolar? And the patient follow with psychiatric provider (Dr Arreaga) and she has counselor at the [facility]. JEFFREY (obstructive sleep apnea) 05/04/2012 Overview (06/09/2024): The patient does not use CPAP Encounters Date Type Department Care Team Description 10/23/2024 10:00 AM EDT Office Visit Urogynecology [address] [phone] Dorys Ansari MD OAB (overactive bladder) (Primary Dx); Stress incontinence; Pelvic pressure in female; Feeling of incomplete bladder emptying; Voiding dysfunction 10/16/2024 12:00 PM EDT Consult Internal Medicine - [address] [phone] Sriram Rain MD Preop examination (Primary Dx); Mixed hyperlipidemia 10/10/2024 9:15 AM EDT Office Visit Internal Medicine [address] [phone] Sriram Rain MD Need for vaccination against Streptococcus pneumoniae (Primary Dx) 10/08/2024 Telephone Internal Medicine [address] [phone] Sriram Rain MD Pre-op Exam 10/07/2024 Telephone Internal Medicine [address] [phone] Sriram Rain MD [place]: Vaccine 09/30/2024 Telephone Internal Medicine [address] [phone] Alisia Chaney MA faxed order (L&C) 08/09/2024 Telephone Internal Medicine [address] [phone] Sriram Rain MD DME more info needed; faxed [...] COMMENT: breast biopsy UPPER GASTROINTESTINAL ENDOSCOPY PROCEDURE: RI UPPER GI ENDOSCOPY PERFORMED; COMMENT: duodenal erosions without bleeding HIATAL HERNIA REPAIR Medical History Medical History Date Comments GERD (gastroesophageal reflux disease) 7 DX:GERD (gastroesophageal reflux disease) Vitamin D deficiency 06/21/2017 DX:Vitamin D deficiency Insomnia 06/21/2017 DX:Insomnia Anxiety 07/07/2017 DX:Anxiety Arthritis 03/07/2017 DX:Arthritis Asthma 05/04/2012 DX:Asthma; COMME NT: The patient follows with research recruiter and [facility] Depression 05/04/2012 DX:Depression; C OMMENT: Bipolar? And the patient follow with psychiatric provider (Dr Arreaga) and [facility]. 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 DX:Erosion o f duodenum Fatty liver 02/28/2018 DX:Fatty liver Hyperlipidemia 12/08/2017 DX:Hyperlipidemi a JEFFREY (obstructive sleep apnea) 05/04/2012 DX :JEFFREY (obstructive sleep apnea); COMMENT: The patient does not use CPAP Tobacco use 05/04/2012 DX:Tobacco use Osteoarthritis 08/15/2012 DX:Osteoarthriti s; COMMENT: Lumbosacral Spine Abnormal Pap smear of cervix Family History Medical History Relation Name Comments [...] Used Date Smoking Tobacco: Every Day Cigarettes 0.5 38.3 Started: 1986 Smokeless Tobacco: Never Tobacco Cessation:Ready to Q uit: Not Asked; Counseling Given: Not Answered Alcohol Use Standard Drinks/Week Comments No 0 [...] for your loved ones. For example, director child or elderly care for an older [...] Sign Reading Time Taken Comments Blood Pressure 151/87 10/23/2024 9:47 AM EDT Pulse 85 10/23/2024 9:47 AM EDT Temperature 36.4 ??C (97.5 ??F) 10/16/2024 12:04 PM E DT Respiratory Rate - - Oxygen Saturation 97% 10/16/2024 12:04 PM EDT Inhaled Oxygen Concentration - - Weight 84.8 kg (187 lb) 10/23/2024 9:47 AM EDT Height 157.5 cm (5' 2 ) 10/23/2024 9:47 AM EDT Body Mass Index 34.2 10/23/2024 9:47 AM EDT Plan of Treatment Upcoming Encounters Date Type Department Care Team (Late st Contact Info) Description 10/31/2024 11:00 AM EDT Procedure visit Urogynecology [address] [phone] 11/07/2024 9:30 AM EDT Office Visit Internal Medicine - [place] [address] [phone] Sriram Rain MD 175 [facility] [address] [place] [phone] 11/14/2024 9:30 AM EDT Office Visit Urogynecology [address] [phone] Dorys Ansari MD [address] [place] [address] [place] [address] Health Maintenance Due Date Last Done Comments Hepatitis B Vaccines (1 of 3 - 19+ 3-dose series) 1988 Zoster Vaccines (1 of 2) 1988 Cervical Cancer Screening: Pap Smear 1990 DTaP,Tdap,and Td Vaccines (2 - Td or Tdap) 05/04/2022 05/04/2012 HIV Screening 07/02/2022 Hepatitis C Screening 07/02/2022 COVID-19 Vaccine ( season) 2024 06/04/2023, 06/22/2022, 06/16/2021, Additional history exists Influenza Vaccine (Season Ended) 2025 Depression Screening 10/07/2025 10/07/2024, 02/01/20 Social Influencers of Health Screening 10/07/2025 10/07/2024 [...] age to complete this topic Meningococcal B Vaccine Aged Out No l onger eligible based on patient's age to complete this topic RSV Immunization Patients Under 20 months Aged Out No longer eligible based on patient's age to complete this topic Varicella Vaccines Aged Out No longer eligible based on patient's age to complete this topic Procedures Procedure Name Priority Date/Time Associated Diagnosis Comments POC URINE AUTO W/O MICRO Routine 10/23/2024 10:34 AM EDT OAB (overactive bladder) ECG Routine 10/22/2024 9:09 AM EDT ECG INTERPRETATION AND REPORT ONLY Routine 10/16/2024 12:42 PM EDT Mixed hyperlipidemia Preop examination CBC WITH AUTO DIFFERENTIAL Routine 10/16/2024 12:42 PM EDT Preoperative examination CBC AND DIFFERENTIAL Routine 10/16/2024 12:42 PM EDT Preoperative examination BASIC METABOLIC PANEL Routine 10/16/2024 12:42 PM EDT Preoperative examination BAKARI SCREENING DIGITAL Routine 04/15/2024 10:03 AM EDT Encounter for screening mammogram for malignant neoplasm of breast HM DEPRESSION SCREENING Routine 02/01/2024 LIPID PANEL Routine 11/08/2023 HM COLONOSCOPY Routine 09/02/2019 from Last 3 Months or Most Recently Relevant to Health Maintenance Results * POC Urine Auto W/O Micro (10/23/2024 10:34 AM EDT) Glucose UA POC Negative Negative, Trace mg/dL Bilirubin UA POC Negative Negative, Small Ketones UA POC Negative Negative, Trace Specific [place] UA POC 1.015 Blood UA POC Negative Negative, Large PH UA POC 7.0 Protein UA POC Negative Negative, >=300 mg/dL Urobilinogen UA POC 0.2 E.U./dL mg/dL Nitrite UA POC Negative Negative Leukocytes UA POC Negative Negative Urine Urine specimen obtained by clean catch procedure / Unknown 10/23/2024 10:34 AM EDT Dorys Ansari MD POINT OF CARE TEST ENTER/EDIT O RDERABLES Final Result * ECG (10/22/2024 9:09 AM EDT) us Sriram Rain MD ECG ORDERABLES Final Result * ECG Interpretation and Report Only (10/16/2024 12:42 PM EDT) Narrative Sriram Rain MD - 10/16/2024 12:42 PM EDT Normal sinus rhythm, no ST-T changes Sriram Rain MD ECG ORDERABLES Final Result * (ABNORMAL) CBC auto differential (10/16/2024 12:42 PM EDT) [facility] WBC 9.2 4.8 - 10.8 K/mcL LAB HEMETOLOGY METHOD 10/16/2024 2:26 PM EDT [facility] RBC 3.80 3.80 - 4.80 M/mcL LAB HEMETOLOGY METHOD 10/16/2024 2:26 PM EDT [facility] Hemoglobin 12.2 11.5 - 16.0 g/dL LAB HEMETOLOGY METHOD 10/16/2024 2:26 PM EDT [facility] Hematocrit 36.5 35.0 - 47.0 % LAB HEMETOLOGY METHOD 10/16/2024 2:26 PM EDT [facility] MCV 95.1 79.0 - 98.0 FL LAB HEMETOLOGY METHOD 10/16/2024 2:26 PM EDT [facility] MCH 31.8 27.0 - 32.0 pcg LAB HEMETOLOGY METHOD 10/16/2024 2:26 PM EDT [facility] MCHC 33.4 32.0 - 37.0 g/dL LAB HEMETOLOGY METHOD 10/16/2024 2:26 PM EDT [facility] RDW 14.3 11.0 - 15.0 % LAB HEMETOLOGY METHOD 10/16/2024 2:26 PM EDT [facility] Platelets 255 130 - 400 K/mcL [facility] MPV 11.6(H) 7.0 - 11.0 FL LAB [facility]EM[facility]OLOGY [facility] NRBC 0.0 <1.0 % LAB HEMETOLOGY METHOD 10/16/2024 2:[address] [facility] NRBC Absolute 0.00 <0.10 K/mcL LAB HEMETOLOGY METHOD [facility]24 [facility] Neutrophils Relative 55.0 % LAB HEMETOLOGY METHOD 10/16/2024 2:[address] [facility] Lymphocytes Relative 32.6 % LAB HEMETOLOGY METHOD 10/16/2024 2:[address] [facility] Monocytes Relative 8.7 % LAB HEMETOLOGY METHOD 10/16/2024 2:[address] [facility] Eosinophils Relative 3.1 % LAB HEMETOLOGY METHOD 10/16/2024 2:[address] [facility] Basophils Relative 0.3 % LAB HEMETOLOGY METHOD 10/16/2024 2:[address] [facility] Immature Granulocytes Relative 0.3 % LAB HEMETOLOGY METHOD 10/16/2024 2:[address] [facility] Neutrophils Absolute 5.03 1.50 - 7.00 K/mcL LAB HEMETOLOGY METHOD 10/16/2024 2:[address] [facility] Lymphocytes Absolute 2.98 1.00 - 5.00 K/mcL LAB HEMETOLOGY METHOD 10/16/2024 2:[address] [facility] Monocytes Absolute 0.80 0.20 - 1.00 K/mcL LAB HEMETOLOGY METHOD 10/16/2024 2:[address] [facility] Eosinophils Absolute 0.28 0.00 - 0.50 K/mcL LAB HEMETOLOGY METHOD 10/16/2024 2:26 PM EDT [facility] Basophils Absolute 0.03 0.00 - 0.20 K/[facility] LAB HEMETOLOGY METHOD 10/16/2024 2:26 PM EDT [facility] Immature Granulocytes Absolute 0.03 0.00 - 0.03 K/[facility] LAB HEMETOLOGY METHOD 10/16/2024 2:26 PM EDT [facility] Blood Venous blood specimen / Unknown Venipuncture / Unknown 10/16/2024 12:42 PM EDT 10/16/2024 2:06 PM EDT us Sriram Rain MD LAB BLOOD ORDERABLES Final Res ult [facility] [address] [place] [address], * (ABNORMAL) Basic metabolic panel (10/16/2024 12:42 PM EDT) Sodium 139 133 - 145 mmol/L LAB CHEMISTRY METHOD 10/16/2024 5:[address] [facility] Potassium 3.7 3.5 - 5.5 mmol/L LAB CHEMISTRY METHOD 10/16/2024 5:[address] [facility] Chloride 108 96 - 110 mmol/L LAB CHEMISTRY METHOD 10/16/2024 5:[address] [facility] CO2 29 21 - 32 mmol/L LAB CHEMISTRY METHOD 10/16/2024 5:[address] [facility] Anion Gap 2(L) 3 - 11 LAB CHEMISTRY METHOD 10/16/2024 5:[address] [facility] Glucose 101(H) 70 - 100 mg/dL LAB CHEMISTRY METHOD 10/16/2024 5:[address] [facility] BUN 8 5 - 25 mg/dL LAB CHEMISTRY METHOD 10/16/2024 5:02 PM EDT [facility] Creatinine 0.78 0.50 - 1.10 mg/dL LAB CHEMISTRY METHOD 10/16/2024 5:02 PM EDT [facility] eGFR 90 >=60 mL/min/1. 73m2 LAB CHEMISTRY METHOD 10/16/2024 5:02 PM EDT [facility] Comment:Calculation based on the??Chronic Kidney Disease Epidemiology Collaboration (CKD-EPI) equation refit??without adjustment for race. BUN/Creatinine Ratio 10.3 LAB CHEMISTRY METHOD 10/16/2024 5:02 PM EDT [facility] Calcium 8.7 8.5 - 10.5 mg/dL LAB CHEMISTRY METHOD 10/16/2024 5:02 PM EDT [facility] Blood Venous blood specimen / Unknown Venipuncture / Unknown 10/16/2024 12:42 PM EDT 10/16/2024 2:04 PM EDT us Sriram Rain MD LAB BLOOD ORDERABLES Final Res ult [facility] [address] [place] [address], * BAKARI SCREENING DIGITAL (04/15/2024 10:03 AM EDT) Anatomical Region Laterality Modality Mammography 04/11/2024 1:26 PM EDT Narrative 04/15/2024 10:03 AM EDT [facility] Diagnostic Imaging Department [address], [place] [id number] Patient: ??BRAYDEN GARZA I ?/Age/Sex: 1970 - 53 - F Unit#: ??[id number] ? Location/Status: ??SPDIMAM/REG CLI ? Mnemonic/Ordering Site: ??DIGSC/SPMAM Ordering Physician: ??SRIRAM RAIN MD [facility] Screening Digital - 04/13/24 - 1018 Report Status:Signed EXAM: [facility] Screening Digital EXAM DATE AND TIME: 04/13/2024 10:19 AM HISTORY: ??Screening. Left breast biopsy in 2009, pathology benign. COMPARISON: ??03/21/23, 03/17/23, 03/15/22, 03/13/21 TECHNIQUE: Bilateral digital breast tomosynthesis was performed in the CC and MLO projections. Computer aided detection with Xagenic 3D 3.1 was employed. TISSUE DENSITY: c. [...] Mammogram performed at [facility] [place] [address] Dictating Physician: ??SLIME MEZA MD Electronically Signed by: ??SLIME MEZA MD Dic Date/Time: ??04/15/24 1001 Sign date/Time: ??04/15/24 1003 Procedure Note Slime Meza MD - 05/08/2024 [facility] Diagnostic Imaging Department [address] [place] [id number] Patient: VITO ZAYBRAYDEN I /Age/Sex: 1970 - 53 - F Unit#: [id number] [facility] CLI Mnemonic/Ordering Site: [facility] Ordering Physician: SRIRAM RAIN MD [facility] Screening Digital - 04/13/24 - 1018 Report Status:Signed EXAM: [facility] Screening Digital EXAM DATE AND TIME: 04/13/2024 10:19 AM HISTORY: Screening. Left breast biopsy in 2009, pathology benign. COMPARISON: 03/21/23, 03/17/23, 03/15/22, 03/13/21 TECHNIQUE: Bilateral digital breast tomosynthesis was performed in the CCand MLO projections. Computer aided detection with Xagenic 3D 3.1was employed. TISSUE DENSITY: c. The [...] Mammogram performed at [place] [address] Dictating Physician: SLIME MEZA MD Electronically Signed by: SLIME MEZA MD Dic Date/Time: 04/15/24 1001 Sign date/Time: 04/15/24 1003 Sriram Rain MD IMG BI PROCEDURES Final Result * Depression Screening (02/01/2024) Pathologist [facility] Depression Screening ABSTRACTED Historical Provider HEALTH MAINTENANCE Final Result * Lipid panel (11/08/2023) Pathologist [facility] LDL/HDL Ratio 3 0 - 4 Triglycerides 99 0 - 150 mg/dL Cholesterol 118 0 - 200 mg/dL HDL 43 >=40 mg/dL LDL Cholesterol 56 0 - 100 mg/dL Blood Venous blood specimen / Unknown Result [facility] Historical Provider LAB BLOOD ORDERABLES Dianne l Result * Colonoscopy (09/02/2019) Pathologist [facility] Colonoscopy NO INTERPRETATION , ABSTRACTED Anatomical Region Laterality Modality Other Historical Provider HEALTH MAINTENANCE Final Result from Last 3 Months or Most Recently Relevant to Health Maintenance Insurance HEALTH PLAN Care Teams Measurement And Verification Engineer Relationship Specialty Start Date End Date Sriram Rain MD 175 [facility] [address] [place] [address] PCP - General Internal Medicine 03/13/17
--- OUTSIDE RECORDS SUMMARY | 2024-10-30 12:41 | XMS_ITS | Encounter Summary ---
Author Organization [facility] Address [address] [place] [address] Care Team Providers Care Database Architect Name Role Phone Corina Rain MD Primary Care Provider [phone] Reason for Visit * Reason Onset Date Comments [place]: Vaccine 10/07/2024 Encounter Details Date Type Department Care Team (Late st Contact Info) Description 10/07/2024 Telephone Internal Medicine - [place] [address] [facility] [address] [place] [phone] Corina Rain MD [address] [facility] [address] [place] [address] [place] [phone] [place]: Vaccine Social History Tobacco Use Types [...] care for your loved ones. For example, children librarian or elderly care for an older adult? [...] Bernice Portillo - 10/07/2024 3:36 PM EDT desk representative received request and booked PT for nurses visit tomorrow for prevnar 20 vaccine * Byron Abad MA - 10/07/2024 3:08 PM EDT Pt doesn't have prevnar 20 vaccine on chart. Pt needs appt. * Renetta Araujo - 10/07/2024 1:15 PM EDT Patient called and requested a call back to know if she has received a prevnar 20 vaccine and If she has not she would like to schedule a appt to get the vaccine because she needs to schedule her surgery tomorrow for a implant. Please advise Cb# [phone] documented in this encounter Plan of Treatment Upcoming Encounters Date Type Department Care Team (Late st Contact Info) Description 10/31/2024 11:00 AM EDT Procedure visit Urogynecology - [place] [address] [place] [address] 11/07/2024 9:30 AM EDT Office Visit Internal Medicine - [place] 175 [facility] [address] [place] [phone] Corina Rain MD [address] [phone] 11/14/2024 9:30 AM EDT Office Visit Urogynecology [address] [phone] Dorys Ansari MD [address] [place] [address] [address] [place] [address] documented as of this encounter Visit Diagnoses Not on filedocumented in this encounter Additional Health Concerns Assessment Noted Time PHQ-9 Depression Total Score: 14 025 6:36 PM EDT documented as of this encounter Care Teams Database Architect Relationship Specialty Start Date End Date Corina Rain MD 175 [facility] [address] [place] [phone] PCP - General Internal Medicine 03/13/17 documented as of this encounter
--- OUTSIDE RECORDS SUMMARY | 2024-10-30 12:41 | XMS_ITS | Encounter Summary ---
Author Organization [facility] Address [address] [place] [address] Care Team Providers Care Manager Market Development Name Role Phone Corina Rain MD Primary Care Provider [phone] Reason for Visit * Reason Onset Date Comments Pre-op Exam 10/08/2024 Encounter Details Date Type Department Care Team (Late st Contact Info) Description 10/08/2024 Telephone Internal Medicine - [place] [address] [facility] [address] [place] [phone] Corina Rain MD [address] [facility] [address] [facility] [address] [place] [phone] Pre-op Exam Social History Tobacco Use Types [...] for your loved ones. For example, child attendant or elderly care for an older adult? [...] schedule pre-op appt for patient. Please call [phone]. * Rehana Newman - 10/08/2024 9:29 AM EDT .Pre op needed for patient Date of surgery 10-25-2024 Procedure ; COCHLEAR IMPLANTS [facility] Contact with appt [facility] [phone] Direct Line /[facility] EKG lab metabolic panel and CBC documented in this encounter Plan of Treatment Upcoming Encounters Date Type Department Care Team (Late st Contact Info) Description 10/31/2024 11:00 AM EDT Procedure visit Urogynecology - [place] [address] [place], [place] [phone] 11/07/2024 9:30 AM EDT Office Visit Internal Medicine - [place] [address] [phone] Corina Rain MD [address] [phone] 11/14/2024 9:30 AM EDT Office Visit Urogynecology [address] [phone] Dorys Ansari MD [address] [place] [address] [place] [address] documented as of this encounter Visit Diagnoses Not on filedocumented in this encounter Additional Health Concerns Assessment Noted Time PHQ-9 Depression Total Score: 14 025 6:36 PM EDT documented as of this encounter Care Teams Manager Market Development Relationship Specialty Start Date End Date Corina Rain MD [address] [phone] PCP - General Internal Medicine 03/13/17 documented as of this encounter
--- OUTSIDE RECORDS SUMMARY | 2024-10-30 12:41 | XMS_ITS | Data Portability ---
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 She has a longstanding asymmetry with negative MRI in the past. Family history significant for hearing loss. Audiometric testing today reveals moderate sloping to profound sensorineural hearing loss on the right with excellent word recognition. On the left she has moderately severe sloping to profound sensorineural hearing loss with poor word recognition of only 40%. The speech recognition on the left dropped from 60% to 40% in the last two years. Type A tympanometry bilaterally. Left ear was meticulously cleaned today with fine pics. Patient is encouraged to avoid Q-tips in her ears relative to packing the wax in tighter. Audiometric testing was reviewed with the patient. I discussed with the patient that she may benefit from cochlear implant on the left. She is very open to considering this. I have recommended that the patient contact Suman Chan to schedule cochlear implant evaluation. Cochlear implant checklist and Dori Herrmann's business card were provided to the patient. [email or web address] Not available 08/02/2024 11:00:31 Plan of Treatment Reminders Order Date Submit Date Provider Last Modified By Organization Details Last Modified Time Details Appointments Post Op 2024 02:15P M KAREN HANSON PA-C Not available Not available Not available Post Op 2024 03:30P M KENNETH MURPHY MD Not available Not available Not available Lab None recorded. Referral None recorded. Procedures None recorded. Surgeries cochlear device implantat ion (SURG) 2024 025 [email or web address] Not available 10/07/2024 13:29:15 Imaging None recorded. Medication Orders None recorded. Patient TargetsNo targets recorded. Patient InstructionsNo instructions recorded. Reason for Referral None Reported. Results Created Date Observation Date Name Description Value Unit Range Abnormal Flag Note LastModifiedBy Organization Detail LastModifiedTime 08/02/19 audio gram No observ ation record ed. BARCODE Not Available 2024 13:47:09 08/28/19 audio gram No observ ation record ed. [email or web address] Not Available 11/2024 09:58:40 09/04/1908/28/2024 audio gram No observ ation record ed. [email or web address] Not Available 08/24 10:33:36 10/08/1910/07/2024 CT, tempo ral bone, w/o contr ast No observ ation record ed. [email or web address] [facility] [address], [place], [address], 10/08/2024 15:01:57 10/27/1910/26/2024 fluor oscop y (PROC ) No observ ation record ed. [email or web address] [facility] [address], [place], [address], 10/28/2024 10:41:00 Result Notes None recorded. Problems Name Problem SNOMED Code Status Onset Date Resolution Date Notes Provider Name and Address Organization Details Recorded Time Otorrhea of left ear 82086736820 27609 Active 2017 Otorrhea , left ear; Note: Date Diagnose d: 12/26/2017 10:52 AM (H92.12) Not Available [facility] 4 03:14:57 Pain of left temporom andibula r joint 71242187482 016822 Active 2016 Arthralg ia of left temporom andibula r joint; Note: Date Diagnose d: 7 11:59 AM (M26.622 ) Not Available [facility] 4 03:14:57 Sensorin eural hearing loss of bilatera l ears 098818065 Active 2022 Sensorin eural hearing loss, bilatera l; Note: Date Diagnose d: 3 3:19 PM (H90.3) Not Available [facility] 4 03:14:58 Tobacco user 709928972 Active 2017 Tobacco use; Note: Date Diagnose d: 12/26/2017 10:57 AM (Z72.0) Not Available [facility] 4 03:14:57 Mixed conducti ve and sensorin eural hearing loss of left ear 24423307609 107 Active 2016 Mixed conducti ve and sensorin eural hearing loss, unilater al, left ear with restrict ed hearing on the contrala teral side; Note: Date Diagnose d: 7 11:21 AM (H90.A32 ) Not Available [facility] 4 03:14:57 Sensorin eural hearing loss in right ear 61005533986 100 Active 2016 Sensorin eural hearing loss, unilater al, right ear, with restrict ed hearing on the contrala teral side; Note: Date Diagnose d: 7 11:21 AM (H90.A21 ) Not Available [facility] 4 03:14:58 Marginal perforat ion of tympanic membrane 81085429 Completed 201702/23/2024 Other marginal perforat ions of tympanic membrane , left ear; Note: Date Diagnose d: 12/26/2017 10:51 AM (H72.2X2 ) Not Available [facility] 4 03:14:57 Impacted cerumen in left ear 71965008649 07809 Active 2024 JANY SHIN PA-C [address] [place] [address], [place], [address] , [place] - [facility] 5 11:01:40 Problem Notes None recorded. Procedures Surgical History Date Name Laterality Status Provider Name and Address Organization Details Recorded Time 10/26/19 25 COCHLEAR DEVICE IMPLANTATION (SURG) completed Jose Vences [place] - [facility] 10/29/2024 10:24:27 10/26/19 25 COCHLEAR DEVICE IMPLANTATION (SURG) completed Jose Vences [facility] 10/29/2024 10:24:47 10/08/[address] temporal bones - Xoran completed KENNETH MURPHY MD [address] [facility],[address], [address], [facility] 10/07/2024 10:55:44 08/02/19 25 Cerumen removal without microscope left completed JANY SHIN PA-C 100 [facility] [address], [place], [address], [facility] 08/02/2024 10:56:26 08/02/19 25 Air & Speech Audio with Tymps (98920, 48335 & 09457) completed SUMAN LANCASTER [address] [facility],[address] [address], [place], [address], [facility] 08/02/2024 10:31:18 Appendectomy completed Evelin Michael [facility] 08/02/2024 10:01:40 cholecystectomy completed Evelin Michael [facility] 08/02/2024 10:01:45 Hysterectomy completed Evelin Michael [facility] 08/02/2024 10:01:54 biopsy of breast completed Evelin Michael [facility] 08/02/2024 10:02:05 Ear Surgery completed Evelin Michael [facility] 08/02/2024 10:02:11 Imaging Results Imaging Date Name Status LastModified by Organiz ation Details LastModified Time 08/02/2024 audiogram completed BARCODE Information no t available 08/02/2024 13:47:09 08/28/2024 audiogram completed [email or web address] Information n ot available 08/28/2024 09:58:40 08/28/2024 audiogram completed [email or web address] Information n ot available 09/04/2024 10:33:36 10/07/2024 CT, temporal bone, w/o contrast completed janell [facility] [address] [facility] [address], [place], [address], 10/08/2024 15:01:57 10/26/2024 fluoroscopy (PROC) completed [email or web address] [facility] [address] [facility], [place], [address], 10/28/2024 10:41:00 Procedure Notes None recorded. 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 [employer] Issuing Agency Serial Number Lot Number Status Provider Name and Address Organization Details Recorded Time cochlear implant FDA [id number] Y KENNETH MURPHY MD [address] [address], [place], [address] , [facility] - [facility] 5 13:58:18 Allergies Allergen ID Allergen Name Allergen Category Reaction Reaction Severity Criticality Documentation Date Start Date Code Code System Note Provider Name and Address Organization Details Recorded Time 070349 Tylenol with Codeine medicatio n other Not available Not available 12/05/2023 17147 6 RxNorm React ion: unkno wn, unspe cifie d;; Not Available [facility] 4 01:23:04 567383 ibuprofen , sodium salt medicatio n other Not available Not available 12/05/2023 17103 44 RxNorm React ion: unkno wn, unspe cifie d;; Not Available [facility] 4 01:23:05 Medications Name Sig Start Date Stop Date Status Note LastModified by Organization Details LastModified Time atorvasta tin 40 mg tablet TAKE 1 TABLET BY MOUTH EVERY DAY active Not Available Not Available No t Available albuterol sulfate 2.5 mg/3 mL (0.083 %) solution for nebulizat ion 10/07 completed Medicati on ID: [id number] B rand Name: albutero l sulfate Send [...] mg tablet 08/02 completed Medicati on ID: [id number] B rand Name: estradio l Send Method: [...] spray,france pension 10/07 completed Medicati on ID: [id number] B rand Name: fluticas one propiona te Send Method: E-Prescr ibed Sub s Allowed: subs OK Medic ationGen ericName : fluticas one propiona te Not Available Not Available Not Available sertralin e 50 mg tablet TAKE 1 1/2 TABLET BY MOUTH ONCE A DAY WITH MEALS 08/02 completed Not Available Not Available Not Available oxycodone 5 mg tablet Take 1 tablet every 4-6 hours by oral route as needed for 3 days. 2024 active Not Available Not Available Not Avai lable mirtazapi ne 7.5 mg tablet 08/02 completed Medicati on ID: [id number] B rand Name: mirtazap ine Send Method: E-Prescr ibed Sub s Allowed: subs OK Medic ationGen ericName : mirtazap ine Not Available Not Available Not Available Ranitidin e Hcl 11/03 completed Medicati on ID: [id number] D uration Value: 30 Brand Name: ranitidi [...] Emphysema N Migraines N Thyroid Problems N Developmental Delay Y Depression Y COPD N Glaucoma N Nasal or Sinus Problems N Anemia N Immune System Disorder N Anesthesia Complications N Heart Attack (TN) N Other Skin Condition N Diabetes N Rhinitis N Bleeding Disorder N Food Allergy N Arthritis Y Hearing Loss Y Hyperlipidemia N Cancer N Stroke N Dementia N Asthma Y Nasal polyps N Sleep Disorder Y GERD/Reflux Y High Cholesterol Y Liver Disease N Fibromyalgia N Headaches N Hypertension N Speech Delay Y Kidney Disease N Gynecological HistoryNo gynecological history recorded. Obstetrics History GPAL:G 0 P 0 0 0 0 Past Encounters Encounter ID Performer Location Encounter Start Date Encounter Closed Date Diagnosis/Indication Diagnosis SNOMED-CT Code Diagnosis ICD10 Code Diagnosis Note [id number] AMPARO PALOMO MD [facility] [address] [address] 08/02/2024 09:50:22 08/02/2024 10:56:08 Sensorineural hearing loss of bilateral ears [id number] H90.3 Audiologic al evaluation results: Right ear: {{Normal N ormal through 2 kHz Mild M oderate* M oderately- severe Sev ere Profou nd}} {{hearing hearing. s loping to a mild slopi ng to a moderate s loping to moderately severe slo ping to severe slo ping to profound* flat high frequency low frequency mid frequency cookie bite bacon curve}} {{with sen sorineural hearing loss with* cond uctive hearing loss with mixed hearing loss with}} {{excellen t* good fa ir poor no measurable }} word recognitio n. Left ear: {{Normal N ormal through 2 kHz Mild M oderate Mo derately-s evere* Sev ere Profou nd}} {{hearing hearing. s loping to a mild slopi ng to a moderate s loping to moderately severe slo ping to severe slo ping to profound* flat high frequency low frequency mid frequency cookie bite bacon curve}} {{with sen sorineural hearing loss with* cond uctive hearing loss with mixed hearing loss with}} {{excellen t good steffanie r poor* no measurable }} word recognitio n. Tympanomet ry: Right Ear:{{Type A* Type As Type Ad Type C Type C, shallow & rounded Ty pe B Type B with large volume Cou ld not maintain a hermetic seal}} Left Ear:{{Type A* Type As Type Ad Type C Type C, shallow & rounded Ty pe B Type B with large volume Cou ld not maintain a hermetic seal}} Impacted c erumen in left ear [id number] 046842 H61.22 [id number] KENNETH MURPHY MD [facility] [address] [address] 10/07/2024 09:29:09 10/07/2024 11:40:01 Sensorineural hearing loss of bilateral ears 050101964 H90.3 Patient with familial, early onset sensorineu [...] CI 622 Cochle ar Corporatio n CI 612}}ruthy victoria. After full discussion , the patient would like to proceed with surgery. I have provided patient with the contact informatio n for my surgical nurse. We will begin the scheduling process and see the patient back at the time of surgery. Patient {{will* wi ll not}} require medical clearance from their primary care provider preoperati royer.Estela victoria's daughter has already set her up for an online visit with Darlyn Thomson from [employer] to discuss accessory choices. Family his tory of hearing loss [id number] Z82.2 Health Concerns Section Related Observation LastModified by Organization Detai ls LastModified Time None Recorded Concern Status LastModified by Organization Details LastModified Time None Recorded Advance Directives Directive None Recorded Payers Encounter Date Sequence Insurance Name Policy Number Policy [place] Covered Member ID [place] Member ID Guarantor Name 08/02/2024 1 [employer] [place] [employer] (MEDICAID HMO) [employer] Virma I Dino [id number] Virma I Dino Lara 10/07/2024 1 [employer] [place] [employer] (MEDICAID HMO) [employer] Virma I Dino [id number] Virma I Dino Deida Notes Date Note Type Note Provider Name and Address Organization Details Recorded Time 08/02/2024 text/html 54 year old femdaphne westbrook presents for hearing evaluation. She uses bilateral hearing aids with poor results. She is having to lip read people to understand them. AMPARO PALOMO MD [address] [place] [address], [address], [facility] - [facility] 08/02/2024 12:41:41 10/07/2024 text/html 54-year-old ashley westbrook comes in for evaluation for possible cochlear implant. She has childhood onset sensorineural hearing loss and wore hearing aids as a young child, but stopped using amplification during her teenage years. She began using amplification about 5 years ago, dispensed at [facility] aud[facility]. Currently receiving limited benefit from conventional amplification. She underwent cochlear implant evaluation with Regla Austin at the [facility] and was found to [...] who has normal hearing. KENNETH MURPHY MD [address] [place] [address], [address], [facility] - [facility] 10/07/2024 11:38:43 OBGyn Episode No OBEpisode recorded.
== END 2024-10-30 10:53 | disposition home or self-care (01) ==
LOC: HO.HAP 10:52
PROVIDERS: Visit Provider Internal Medicine
DX: Z46.1 Encounter for fitting and adjustment of hearing aid (principal); H90.3 Sensorineural hearing loss, bilateral
CPT/HCPCS: V5264